=== PATIENT | male | born 1965 | race Caucasian/White ===

== ENCOUNTER → 2016-12-08 | Outpatient (CLI) | payer MEDICARE, OTHER | LOC: KOH-I 09:40 | DX: R10.9 Unspecified abdominal pain (principal) | CPT/HCPCS: 76700 ==

== ENCOUNTER → 2016-12-26 | Outpatient (CLI) | payer MEDICARE, OTHER | LOC: KOH-I 12:03 | DX: R10.12 Left upper quadrant pain (principal); M95.4 Acquired deformity of chest and rib; M24.652 Ankylosis, left hip | CPT/HCPCS: 74176 ==